=== PATIENT | male | born 1985 | race Caucasian/White ===

== ENCOUNTER 2020-07-28 17:15 | Emergency (ER) | payer OTHER | END 2020-07-28 20:12 | disposition home or self-care (01) | LOC: ER1 17:15 | DX: S09.90XA Unspecified injury of head, initial encounter (principal); S50.311A Abrasion of right elbow, initial encounter; Y04.0XXA Assault by unarmed brawl or fight, initial encounter; Y92.009 Unspecified place in unspecified non-institutional (private) residence as the place of occurrence of the external cause | CPT/HCPCS: 70450; 72125; 99284 ==

== ENCOUNTER 2020-09-09 02:10 | Emergency (ER) | payer OTHER ==
[2020-09-09 03:34] LABS: RED BLOOD COUNT 4.97 M/UL (4.20-5.50); WHITE BLOOD COUNT 19.1 K/UL (4.5-11.0)
[2020-09-09 03:53] LABS: BUN/CREATININE RATIO 10 (0-10)
[2020-09-09] MEDS ORDERED: ZOFRAN ODT 4 MG4 MG PO (07:09)
[2020-09-09] MEDS ORDERED: K-PHOS NEUTRAL250 M1 PO (07:09)
== END 2020-09-09 07:31 | disposition home or self-care (01) ==
LOC: ER1 02:10
PROVIDERS: Physician Assistant
DX: R11.2 Nausea with vomiting, unspecified (principal); R50.9 Fever, unspecified; E83.30 Disorder of phosphorus metabolism, unspecified; Z20.822 Contact with and (suspected) exposure to COVID-19
CPT/HCPCS: 0240U; 71045; 80053; 81001; 83605; 83735; 83880; 84100; 85025; 85652; 86140; 87040; 87086; 96374; 96375; 99284; J1885; J2405